=== PATIENT | female | born 1985 | race Caucasian/White ===

== ENCOUNTER → 2016-03-28 | Outpatient (CLI) | payer OTHER ==
--- NOTE | 2016-03-28 12:03 | US ---
March 28, [address] [facility] Providers Thank you for allowing us to see your patient regarding anatomic survey. As you know she is a 30 yea r-old 1, para 0. Her due date is 08/12/16 which is based on LMP. Her current gestational age based on this dating is 20 weeks 3 days. She had normal NIPT and Preparent Number of fetuses: 1 Placental location: anterior Cord Insertion: Central presentation: vertex Cervix: 3.3 cm by TVUS secondary to ?previa on TA views, not confirmed JUANA of 20.6 cm The adnexa were evaluated. No pathology was seen. Right ovary not seen Left ovary not seen Measurements: Biparietal diameter: 49 mm 20 weeks, 6 days Head circumference: 178 mm 20 weeks, 2 days Abdominal circumference: 155 mm 20 weeks, 5 days Femur length: 34 mm 20 weeks, 5 days Humerus length: 34 mm 21 weeks, 4 days Transcerebellar diameter: 20 mm 19 weeks, 2 days Average ultrasound age: 20 weeks, 5 days Estimated weight: 368 gm weight percentile: 58 % ANATOMY Upper extremities: Normal Lower extremities: Normal Supratentorial brain: Normal Lateral ventricle: 6.0 mm Posterior fossa: Normal Cisterna Magna: 3.9 mm Spine: Normal Nuchal fold: 2.9 mm Face: Normal nose, lip, profile, alveolar ridge, Heart: Normal rate, rhythm, axis, 4 chamber view, LVOT, RVOT, IVS, AA, DA Stomach: Normal Diaphragm: Umbilical cord insertion: Normal Right kidney: Normal Left kidney: Normal Bladder: Normal Number of cord vessels: Three. Impression: This is a 30 year-old 1, para 0 at 20 weeks, 3 days gestation. 1. SIUP with biometry cw sta mj gestational age. Nl JUANA. No anatomic abnormalities noted. 2. I was happy to review these findings with your patient today. Thank you for allowing me to see your patient. NO E&M charged today. 3. She reports a pruritic abdominal rash for 1-2 weeks. Although it looks like a contact dermatitis, she reports no new exposures. It is less likely cholestasis given the rash but fasting bile acids c ould be checked for confirmation. 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 Kylie Nolasco MD Diagnosis Division of Maternal Medicine Department of Obstetrics and Gynecology [facility]
--- NOTE | 2016-03-28 18:00 | US ---
Complete Obstetric Ultrasound dated March 28, 2016 Indication: Evaluate growth and dates. The estimated gestational age by LMP is August 12, 2016 yieldin g an EDC of 20 weeks 3 days. Comparison: None Findings: Number: 1 Presentation: Vertex Placental location: Anterior without previa Cervix: 3.3 cm by transvaginal scan. HR: 143 bpm JUANA: 20.6 cm Biometry: Biparietal diameter: 4.9 cm 20 weeks 6 days Head circumference: 17.8 cm 20 weeks 2 days Abdominal circumference: 15.5 cm 20 weeks 5 days Femur length: 3.4 cm 20 weeks 5 days Humerus length: 3.4 cm 21 weeks 4 days HC/AC: 1.15 (1.09 - 1.26) FL/BPD: 70% FL/AC: 22% Average ultrasound age: 20 weeks 5 days EDC based on today's average ultrasound age: August 10, 2016 Estimated weight is 368 +/- 54 gms. The estimated weight is at the 58 % based on previous dating. ANATOMY SURVEY: Supratentorial brain: Normal Posterior fossa: Normal Spine: Normal Nose and lips: Normal Facial profile: Normal Heart: Four chamber heart. Intact interventricular septum. Cardiac outflow tracts: Normal Stomach: Normal Umbilical cord insertion: Normal Kidneys: Normal, no pyelectasis Bladder: Normal Number of cord vessels: Three Upper extremities: Normal Lower extremities: Normal. No clubbing. Impression: 1. Living cohen . Size concordant with dates. The estimated gestational age by biometry is 20 weeks 5 days yielding an EDC of August 10, 2016. 2. Unremarkable anatomy. No anomalies detected. 3. Please see additional consultation by Dr. Kylie Nolasco. Final report concurs with initial preliminary interpretation.
== END ==
LOC: FIMAGING 10:34
PROVIDERS: ATTEND Advanced Practice Midwife
DX: Z34.02 Encounter for supervision of normal first pregnancy, second trimester (principal); Z3A.20 20 weeks gestation of pregnancy

== ENCOUNTER → 2016-08-29 | Outpatient (CLI) | payer OTHER | LOC: FIMAGING 13:24 | PROVIDERS: ATTEND Advanced Practice Midwife | DX: O72.1 Other immediate postpartum hemorrhage (principal); O92.70 Unspecified disorders of lactation ==